=== PATIENT | male | born 1945 | race Caucasian/White ===

== ENCOUNTER 2016-12-31 12:56 | Emergency (ER) | payer MEDICARE, BC, OTHER ==
[~2016-12-31] VITALS: Ht 175.3 cm; Wt 92.5 kg
[~2016-12-31 12:56] MED LIST changes: -LIDOCAINE 2% INJ 100 MG/5 ML SDV (FOR ANES.) As Ordered ONE; -METO50TA2 PO; -METOPROLOL 5 MG/5 ML VIAL As Ordered ONE; -METOPROLOL TART 25 MG TABLET PO ONE; -NS 1,000 ML IV ONE; -PROPOFOL 200 MG/20 ML VIAL As Ordered ONE
[2016-12-31] MEDS ORDERED: PRAV40TA2 PO (13:09)
[2016-12-31] MEDS ORDERED: METO50TA2 PO (13:09)
[2016-12-31] MEDS ORDERED: ASPIRIN 81 MG CHEW TABLET PO ONE (13:15)
[2016-12-31 13:55] LABS: BASO % 0.6 % (0.0-1.0); EOS # 0.2 K/mm3 (0.0-0.50); LARGE UNSTAINED CELL # 0.1 K/mm3 (0.0-0.4); LARGE UNSTAINED CELL % 1.2 % (0.0-4.0); LYMPH # 1.5 K/mm3 (1.5-4.5); LYMPH % 25.7 % (24.0-44.0); MEAN CORPUSCULAR HGB CONC 35.3 g/dl (32.0-36.5); MONO # 0.4 K/mm3 (0.0-0.8); MONO % 6.2 % (0.0-5.0); NEUTROPHILS # 3.5 K/mm3 (1.8-7.7); NEUTROPHILS % 62.3 % (36.0-66.0); PLATELET COUNT, AUTOMATED 148 k/mm3 (150-450); RED CELL DISTRIBUTION WIDTH 13.4 % (11.5-14.5); WHITE BLOOD COUNT 5.6 K/mm3 (4.0-10.0)
[2016-12-31 14:18] LABS: ALBUMIN 3.8 GM/DL (3.2-5.2); ALBUMIN/GLOBULIN RATIO 1.31 (1.00-1.93); ALKALINE PHOSPHATASE 63 U/L (45-117); ALT/SGPT 25 U/L (12-78); ANION GAP 7 MEQ/L (8-16); AST/SGOT 15 U/L (15-37); BILIRUBIN,DIRECT 0.2 MG/DL (0.0-0.2); BILIRUBIN,TOTAL 1.4 MG/DL (0.2-1.0); BLOOD UREA NITROGEN 16 MG/DL (7-18); CALCIUM LEVEL 9.1 MG/DL (8.8-10.2); CARBON DIOXIDE LEVEL 28 MEQ/L (21-32); CHLORIDE LEVEL 105 MEQ/L (98-107); CREATININE FOR GFR 0.95 MG/DL (0.70-1.30); GLOMERULAR FILTRATION RATE > 60.0 (>42); GLUCOSE, FASTING 147 MG/DL (83-110); POTASSIUM SERUM 4.1 MEQ/L (3.5-5.1); SODIUM LEVEL 140 MEQ/L (136-145); TOTAL PROTEIN 6.7 GM/DL (6.4-8.2)
--- NOTE | 2016-12-31 14:34 | REP ---
PORTABLE CHEST: AP portable view of the chest is performed. COMPARISON: 01/30/2012. There is mild bibasilar fibroatelectatic change, which is stable with no evidence of acute infiltrate. The heart is upper limits of normal in size. There is calcification and tortuosity of the thoracic aorta. IMPRESSION: No acute pulmonary disease. Stable chronic changes. Signed by Ravi Tripp MD 12/31/2016 03:58 P
[2016-12-31] MEDS ORDERED: NITROGLYCERIN 0.4 MG SUBL TABLET SL PRN (14:45)
[2016-12-31] MEDS ORDERED: METOPROLOL TART 50 MG TAB PO ONE (14:45)
[2016-12-31] MEDS ORDERED: LOSARTAN 50 MG TAB PO ONE (14:45)
[2016-12-31 15:04] VITALS: BP 207/111
--- NOTE | 2016-12-31 15:47 | REP ---
CT Head without contrast HISTORY: Headache COMPARISON: 10/20/2007 Areas of decreased attenuation are present in the periventricular white matter. This represents small-vessel ischemic disease. There is no intraparenchymal hemorrhage, acute infarct, mass or midline shift. The ventricular system and cortical sulci are dilated consistent with minimal volume loss. There is no extra cerebral collection. There is no fracture. The visualized sinuses are clear. IMPRESSION: 1. Small vessel ischemic disease. 2. Minimal volume loss. Signed by Prasanth Booth MD 12/31/2016 03:38 P
--- NOTE | 2016-12-31 15:56 | REP ---
CT abdomen pelvis without IV or bowel contrast: Comparison 01/30/2012. There is no pneumoperitoneum. There is no free fluid. The colon is dilated from the cecum to the proximal sigmoid colon where there is an abrupt transition. At the zone of abrupt transition there is no colonic wall thickening or mass. By CT. The patient has a history of cholecystectomy. The visualized lung wren are unremarkable. The unenhanced hepatic parenchyma, pancreas and spleen are unremarkable. There are surgical clips in the gallbladder fossa. The adrenals are unremarkable. There is no hydronephrosis. There are left renal cortical cysts as previously, the largest measures 4.1 cm today, 3.1 cm previously. There are no renal calculi. The abdominal aorta is unremarkable. There is no small bowel distension. Pelvis: The appendix is not identified. There is no pericecal inflammation or abscess. The bladder is unremarkable. There is no adenopathy or ascites. There are surgical karen in the distal transverse colon. Impression: There is no pneumoperitoneum. No free peritoneal fluid. The colon is dilated from the cecum to the proximal sigmoid colon where there is an abrupt transition. At the abrupt transition there is no wall thickening or mass by CT. There are surgical clips in the distal transverse colon. There is no small bowel distension. There are surgical clips in the gallbladder fossa. There is no hydronephrosis. There are left renal cysts. The bladder is distended but otherwise unremarkable. Otherwise, neg CT abd pelvis. Signed by Ravi Monroe MD 12/31/2016 03:48 P
[2016-12-31 20:18] VITALS: BP 194/91
--- NOTE | 2017-01-01 07:27 | ECGEPIP ---
Stationary ECG Study [facility] - ED Test Date: 2016-12-31 Pat Name: LUKAS ARRINGTON Department: Room: - Gender: M Director Technical: PB : 1945 Requested By: MARIANA Morin Order Number: [id number] Reading MD: Sonya Brown Measurements Intervals [place] Rate: 70 P: 8 ME: 173 QRS: 31 QRSD: 110 T: 51 QT: 403 QTc: 435 Interpretive Statements SINUS RHYTHM NONSPECIFIC T-WAVE ABNORMALITY DECREASED RATE 01/30/12 Electronically Signed On 01-01-2017 7:27:13 EDT by Sonya Brown
--- NOTE | 2017-01-01 07:32 | ECGEPIP ---
Stationary ECG Study [facility] - ED Test Date: 2016-12-31 Pat Name: LUKAS ARRINGTON Department: Room: - Gender: M Patrol Agent: : 1945 Requested By: RANDI Loza Order Number: [id number] Reading MD: Sonya Brown Measurements Intervals [place] Rate: 70 P: 40 VA: 200 QRS: 43 QRSD: 97 T: 86 QT: 400 QTc: 433 Interpretive Statements SINUS RHYTHM NONSPECIFIC T-WAVE ABNORMALITY SIMILAR 12/31/16 13:20 Electronically Signed On 01-01-2017 7:32:41 EDT by Sonya Brown
--- NOTE | 2017-01-02 07:03 | ED PDOC ---
Post-Departure Follow-Up radiology repotrt faxed to Rose ji Sarah MD Jan 02, 2017 07:03
== END 2016-12-31 20:48 | disposition home or self-care (01) ==
LOC: M ED 14:51
DX: I10 Essential (primary) hypertension (principal); R07.9 Chest pain, unspecified; R94.31 Abnormal electrocardiogram [ECG] [EKG]; N28.1 Cyst of kidney, acquired; E11.9 Type 2 diabetes mellitus without complications; J45.909 Unspecified asthma, uncomplicated; K21.9 Gastro-esophageal reflux disease without esophagitis; N40.0 Benign prostatic hyperplasia without lower urinary tract symptoms; Z87.891 Personal history of nicotine dependence; J30.2 Other seasonal allergic rhinitis; Z79.899 Other long term (current) drug therapy

== ENCOUNTER → 2016-12-31 | Outpatient (CLI) | payer MEDICARE, BC, OTHER ==
[~2016-12-31] VITALS: Ht 177.8 cm; Wt 93.4 kg
[~2016-12-31] MED LIST: /AUGM25TA OR; /ESOM40CA OR; /TAMS4CA OR; ACET500C PO; ASPI81TA83 OR; CRES20TA OR; FINA5TAB2 PO; FISH1000 OR; FLAXOIL3 PO; FLOM5CAP PO; GINSING OR; INHALER INH; JANUVIA PO; LIDOCAINE 2% INJ 100 MG/5 ML SDV (FOR ANES.) As Ordered ONE; LISI10TA4 OR; LOPR50TA PO; LOSA50TA20 PO; METO25TAB PO; METO50TA2 PO; METOPROLOL 5 MG/5 ML VIAL As Ordered ONE; METOPROLOL TART 25 MG TABLET PO ONE; MVI; NS 1,000 ML IV ONE; PLAV75TA38 PO; PRAV40TA2 PO; PROPOFOL 200 MG/20 ML VIAL As Ordered ONE; PROS5TAB OR; SING10TA31 OR; TYLE500T78 PO; VICO5TAB OR
--- NOTE | 2016-12-31 11:22 | ROOR ---
Patient Name: Alfonzo Benson Procedure Date: 12/31/2016 10:48 AM Date of : 1945 Age: 71 Room: [facility] Gender: Male Note Status: Finalized Procedure: Total Colonoscopy to Cecum + Cold Snare Polypectomy + Hemoclips Indications: High risk colon cancer surveillance: Personal history of colonic polyps, Last colonoscopy: 2014 Providers: Chino Thomas MD Referring MD: FELICIANO Bush Requesting Provider: Medicines: Monitored Anesthesia Care Complications: No immediate complications. Procedure: Pre-Anesthesia Assessment: - The heart rate, respiratory rate, oxygen saturations, blood pressure, adequacy of pulmonary ventilation, and response to care were monitored throughout the procedure. The Colonoscope was introduced through the anus and advanced to the cecum, identified by appendiceal orifice and ileocecal valve. The colonoscopy was performed without difficulty. The patient tolerated the procedure well. The quality of the bowel preparation was excellent. Findings: The perianal and digital rectal examinations were normal. Non-bleeding internal hemorrhoids were found during retroflexion. The hemorrhoids were small and Grade I (internal hemorrhoids that do not prolapse). Multiple small and large-mouthed diverticula were found in the recto-sigmoid colon, sigmoid colon and descending colon. A medium polyp was found in the mid transverse colon. The polyp was sessile. The polyp was removed with a cold snare. Resection and retrieval were complete. To prevent bleeding after the polypectomy, two hemostatic clips were successfully placed (MR conditional). There was no bleeding at the end of the procedure. The exam was otherwise without abnormality on direct and retroflexion views. Impression: - Non-bleeding internal hemorrhoids. - Diverticulosis in the recto-sigmoid colon, in the sigmoid colon and in the descending colon. - One medium polyp in the mid transverse colon, removed with a cold snare. Resected and retrieved. Clips (MR conditional) were placed. - The examination was otherwise normal on direct and retroflexion views. - The exam was otherwise normal to the cecum. Recommendation: - Patient has a contact number available for emergencies. The signs and symptoms of potential delayed complications were discussed with the patient. Return to normal activities tomorrow. Written discharge instructions were provided to the patient. - High fiber diet. - Discharge patient to home. - Continue present medications. - Await pathology results. - Telephone GI clinic for pathology results in 1 week. - Repeat colonoscopy for surveillance based on pathology results. - Return to referring physician. - The findings and recommendations were discussed with the patient's family. Chino Thomas MD Chino Thomas MD 12/31/2016 11:21:26 AM This report has been signed electronically. Number of Addenda: 0 Note Initiated On: 12/31/2016 10:48 AM Estimated Blood Loss: Estimated blood loss: none.
[2016-12-31 12:10] VITALS: BP 240/135
[2016-12-31 12:40] VITALS: BP 241/137
== END | disposition home or self-care (01) ==
LOC: M OPP 09:17
PROVIDERS: ATTEND Internal Medicine Gastroenterology
DX: Z12.11 Encounter for screening for malignant neoplasm of colon (principal); D12.3 Benign neoplasm of transverse colon; K64.0 First degree hemorrhoids; K57.30 Diverticulosis of large intestine without perforation or abscess without bleeding; Z86.010 Personal history of colon polyps; I25.10 Atherosclerotic heart disease of native coronary artery without angina pectoris; I10 Essential (primary) hypertension; E78.5 Hyperlipidemia, unspecified; R23.3 Spontaneous ecchymoses; M19.90 Unspecified osteoarthritis, unspecified site; N40.1 Benign prostatic hyperplasia with lower urinary tract symptoms; R06.02 Shortness of breath; J45.909 Unspecified asthma, uncomplicated; Z95.5 Presence of coronary angioplasty implant and graft; Z87.891 Personal history of nicotine dependence; Z79.01 Long term (current) use of anticoagulants; Z79.899 Other long term (current) drug therapy

== ENCOUNTER → 2023-11-11 | Outpatient (CLI) | payer MEDICARE, BC ==
[~2023-11-11] MED LIST changes: -/ESOM40CA OR; -/TAMS4CA OR; +CLOP75TA99 PO; +FLOM0.4C39 OR; +FLOM0.4C39 PO; -FLOM5CAP PO; +ISOVUE-370 76% 100ML VIAL As Ordered ONE; -LOSA50TA20 PO; +LOSA50TA28 PO; +METO25TA4 PO; -METO25TAB PO; +METO50TA7 PO; +NEXI1CAP3 OR; -PLAV75TA38 PO
== END ==
LOC: M RAD 15:26
PROVIDERS: ATTEND Physician Assistant Medical
DX: F17.201 Nicotine dependence, unspecified, in remission (principal)
CPT/HCPCS: 71275; Q9967

== ENCOUNTER → 2025-07-15 | Outpatient (CLI) | payer MEDICARE, BC ==
[~2025-07-15] MED LIST changes: -FLOM0.4C39 PO; -ISOVUE-370 76% 100ML VIAL As Ordered ONE; -PRAV40TA2 PO; +PRAV40TA85 PO; +PROHANCE 279.3MG/ML 15ML VIAL ONE; +PROHANCE 279.3MG/ML 5ML VIAL ONE; +TAMS-18 PO
== END ==
LOC: M PLAIMG 11:16
PROVIDERS: ATTEND Nurse Practitioner Family
DX: R97.20 Elevated prostate specific antigen [PSA] (principal)
CPT/HCPCS: 72197; A9579